=== PATIENT | female | born 1955 | race Asian ===

== ENCOUNTER 2024-05-21 13:54 | Inpatient (IN) | payer MEDICARE, OTHER ==
[~2024-05-21] VITALS: Ht 165.1 cm; Wt 58.1 kg
[~2024-05-21 13:54] MED LIST: AMAN100T PO; AMOX-430 PO; APIX2.5T PO; CRAN450T9 PO; DOCU-141 PO; DONE10TA11 PO; FAMO20TA8 PO; GLAT20KI3 SQ; LEVO25TA9 PO; MULT-213 PO; SIMV10TA98 PO; VALP250C3 PO; VALP250S4 PO
[2024-05-21] MEDS ORDERED: ACET-3117 PO (14:29)
[2024-05-21] MEDS ORDERED: MAGN400O6 PO (14:29)
[2024-05-21] MEDS ORDERED: ACET-2030 PO (14:29)
[2024-05-21] MEDS ORDERED: NA P133E RC (14:29)
[2024-05-21] MEDS ORDERED: BISA10SU61 RC (14:29)
[2024-05-21] MEDS ORDERED: CHOL10005 PO (14:29)
[2024-05-21] MEDS ORDERED: POLY17PO4 PO (14:29)
[2024-05-21 14:40] LABS: BASOPHILS # (AUTO) 0.1 K/UL (0.0-0.2); BASOPHILS % (AUTO) 1.2 % (0.0-2.0); EOSINOPHILS # (AUTO) 0.2 K/uL (0.0-0.7); EOSINOPHILS % (AUTO) 2.8 % (0.0-7.0); HEMOGLOBIN 14.7 g/dL (10.9-14.3); LYMPHOCYTES # (AUTO) 4.1 K/uL (0.8-4.8); LYMPHOCYTES % (AUTO) 52.7 % (20.5-51.5); MEAN CORPUSCULAR HEMOGLOBIN 27.2 uug (24.7-32.8); MEAN CORPUSCULAR HGB CONC 33 g/dL (32.3-35.6); MEAN CORPUSCULAR VOLUME 83.2 fL (75.5-95.3); MONOCYTES # (AUTO) 0.5 K/uL (0.1-1.30); MONOCYTES % (AUTO) 6.9 % (0.0-11.0); NEUTROPHILS # (AUTO) 2.8 K/uL (1.8-8.9); NEUTROPHILS % (AUTO) 36.4 % (38.5-71.5); PLATELET COUNT (AUTO) 237 K/uL (179-408); RED BLOOD CELL COUNT(AUTO) 5.41 MIL/uL (3.63-4.92); RED CELL DISTRIBUTION WIDTH 13.6 % (12.3-17.7); WHITE BLOOD COUNT (AUTO) 7.7 K/uL (3.8-11.8)
[2024-05-21 14:42] LABS: DIFFERENTIAL COMMENT 1
[2024-05-21 14:52] LABS: CALCIUM 9.2 mg/dL (8.5-10.1); CARBON DIOXIDE 29 mmol/L (21-32); CHLORIDE 107 mmol/L (98-107); CREATININE 0.7 mg/dL (0.6-1.3); GLUCOSE 74 mg/dL (74-106); POTASSIUM 3.5 mmol/L (3.5-5.1); SODIUM SERUM 143 mmol/L (136-145); UREA NITROGEN, BLOOD 19 mg/dL (7-18)
[2024-05-21 14:54] LABS: AMMONIA < 10 umol/L (11-32)
[2024-05-21 15:05] LABS: ETHANOL < 3 MG/DL (0-10)
[2024-05-21 15:06] LABS: ACETAMINOPHEN < 2.0 ug/mL (10-30); ALANINE AMINOTRANSFERASE 23 U/L (14-59); ALBUMIN 3.1 g/dL (3.4-5.0); ALKALINE PHOSPHATASE 114 U/L (50-136); ASPARTATE AMINOTRANSFERASE 17 U/L (15-37); BILIRUBIN,DIRECT 0.1 mg/dL (0.0-0.2); BILIRUBIN,TOTAL 0.4 mg/dL (0.2-1.0); TOTAL PROTEIN, SERUM 7.6 g/dL (6.4-8.2)
[2024-05-21 15:16] LABS: *BILIRUBIN,URIN NEGATIVE (NEGATIVE); *BLOOD, URINE 2+ (NEGATIVE); *CLARITY,URINE CLOUDY (CLEAR); *COLOR,URINE YELLOW (YELLOW); *KETONES,URINE NEGATIVE (NEGATIVE); *PROTEIN,URINE 2+ (NEGATIVE); LEUKOCYTE ESTERASE ,URINE 3+ (NEGATIVE); NITRITE, URINE NEGATIVE (NEGATIVE); PH,URINE 8.5 (5.0-8.0); UGLUCOSE NEGATIVE (NEGATIVE)
[2024-05-21 15:28] LABS: BACTERIA,URINE MODERATE /HPF (NONE SEEN); SQUAMOUS EPITHELIAL CELL,UR FEW /HPF (NONE SEEN); URINE AMORPHOUS PHOSPHATES MANY /HPF; WBC,URINE 50-80 /HPF (0-3)
[2024-05-21 15:32] LABS: *AMPHETAMINE, URINE NEGATIVE (NEGATIVE); *BARBITURATE, URINE NEGATIVE (NEGATIVE); *BENZODIAZEPINE, URINE NEGATIVE (NEGATIVE); *CANNABINOID, URINE NEGATIVE (NEGATIVE); *COCCAINE, URINE NEGATIVE (NEGATIVE); *OPIATE, URINE NEGATIVE (NEGATIVE); *PHENCYCLIDINE SCREEN,URINE NEGATIVE (NEGATIVE); FENTANYL, URINE NEGATIVE (NEGATIVE)
[2024-05-21] MEDS ORDERED: ENOXAPARIN SODIUM 40 MG/0.4 ML DISP.SYRIN SQ SCH (15:45)
[2024-05-21] MEDS ORDERED: ONDANSETRON 4 MG/2 ML VIAL IV PRN (15:45)
[2024-05-21] MEDS ORDERED: REMEDY ESSENTIAL ZINC PASTE 113 GM TP PRN (15:45)
[2024-05-21] MEDS ORDERED: MAGNESIUM HYDROXIDE 30 ML LIQUID UDC PO PRN ×2 (15:45→16:00)
[2024-05-21] MEDS ORDERED: ACETAMINOPHEN 325 MG TABLET PO PRN (15:45)
[2024-05-21] MEDS ORDERED: BISACODYL 10 MG SUPP.RECT RC PRN (16:00)
[2024-05-21] MEDS ORDERED: Medication Not On Formulary EA (Acetaminophen 650 MG) PO PRN (16:00)
[2024-05-21] MEDS ORDERED: FLEET ENEMA 133 ML BOTTLE RC PRN (16:00)
[2024-05-21] MEDS ORDERED: MIRALAX 17 GM POWD.PACK PO PRN (16:00)
[2024-05-21 19:20] VITALS: BP 119/62; TEMP 97.6; O2SAT 96
[2024-05-21] MEDS: CEFTRIAXONE 1 G in IV DEXTROSE 5% 50 ML IV SCH (20:13)
[2024-05-21] MEDS: DONEPEZIL 10 MG TABLET PO SCH (21:04)
[2024-05-21] MEDS: SIMVASTATIN 10 MG TABLET PO SCH (21:04)
[2024-05-21] MEDS: APIXABAN 2.5 MG TABLET PO SCH (21:07)
[2024-05-21] MEDS: DOCUSATE SODIUM 100 MG CAPSULE PO SCH (21:10)
[2024-05-22 04:30] VITALS: BP 128/51; TEMP 97.7; O2SAT 97
[2024-05-22] MEDS: PANTOPRAZOLE SODIUM 40 MG TABLET.DR PO SCH (06:09)
[2024-05-22] MEDS: LEVOTHYROXINE SODIUM 25 MCG TABLET PO SCH (06:09)
[2024-05-22 06:20] VITALS: BP 111/68; TEMP 97.9; O2SAT 99
[2024-05-22 06:46] LABS: CALCIUM 9.1 mg/dL (8.5-10.1); CREATININE 0.7 mg/dL (0.6-1.3); MAGNESIUM 2.3 mg/dL (1.8-2.4); PHOSPHOROUS 3.9 mg/dL (2.5-4.9); POTASSIUM 3.8 mmol/L (3.5-5.1)
[2024-05-22 06:58] LABS: THYROID STIMULATING HORMONE 3.26 mIU/mL (0.358-3.740)
[2024-05-22 07:07] LABS: BASOPHILS # (AUTO) 0.1 K/UL (0.0-0.2); BASOPHILS % (AUTO) 0.9 % (0.0-2.0); EOSINOPHILS # (AUTO) 0.3 K/uL (0.0-0.7); EOSINOPHILS % (AUTO) 3.2 % (0.0-7.0); HEMOGLOBIN 14.4 g/dL (10.9-14.3); LYMPHOCYTES # (AUTO) 4.3 K/uL (0.8-4.8); LYMPHOCYTES % (AUTO) 47.2 % (20.5-51.5); MEAN CORPUSCULAR HGB CONC 33 g/dL (32.3-35.6); MEAN CORPUSCULAR VOLUME 82.5 fL (75.5-95.3); MONOCYTES # (AUTO) 0.7 K/uL (0.1-1.30); MONOCYTES % (AUTO) 7.8 % (0.0-11.0); NEUTROPHILS # (AUTO) 3.7 K/uL (1.8-8.9); NEUTROPHILS % (AUTO) 40.9 % (38.5-71.5); PLATELET COUNT (AUTO) 203 K/uL (179-408); RED BLOOD CELL COUNT(AUTO) 5.34 MIL/uL (3.63-4.92); RED CELL DISTRIBUTION WIDTH 13.4 % (12.3-17.7)
[2024-05-22 07:50] VITALS: BP 109/45; TEMP 98.3; O2SAT 81
[2024-05-22] MEDS: CHOLECALCIFEROL 1,000 UNIT TABLET PO SCH (08:42)
[2024-05-22] MEDS: MULTIVITAMINS,THERAPEUTIC TABLET PO SCH (08:42)
[2024-05-22] MEDS ORDERED: Medication Not On Formulary EA (Multivitamins W-Minerals (Multivitamin With Minerals) 1 PO SCH (09:00)
[2024-05-22] MEDS ORDERED: Medication Not On Formulary EA (Cranberry Fruit (Cranberry) 450 MG) PO SCH (09:00)
[2024-05-22] MEDS ORDERED: Medication Not On Formulary EA (Cholecalciferol (Vitamin D3) (Vitamin D3) 1 CAP) PO SCH (09:00)
[2024-05-22] MEDS ORDERED: FAMOTIDINE 20 MG TABLET PO SCH (09:00)
[2024-05-22] MEDS: AMANTADINE HCL 100 MG CAPSULE PO SCH (09:01)
[2024-05-22 11:11] VITALS: BP 132/61; TEMP 97.5; O2SAT 98
[2024-05-22 15:27] VITALS: BP 100/58; TEMP 97.9; O2SAT 99
[2024-05-23 04:29] VITALS: BP 109/66; TEMP 97.8; O2SAT 92
[2024-05-23 06:37] LABS: BASOPHILS # (AUTO) 0.1 K/UL (0.0-0.2); BASOPHILS % (AUTO) 0.8 % (0.0-2.0); EOSINOPHILS # (AUTO) 0.2 K/uL (0.0-0.7); EOSINOPHILS % (AUTO) 2.8 % (0.0-7.0); HEMATOCRIT 43.4 % (31.2-41.9); HEMOGLOBIN 14.3 g/dL (10.9-14.3); LYMPHOCYTES # (AUTO) 3.4 K/uL (0.8-4.8); LYMPHOCYTES % (AUTO) 44.8 % (20.5-51.5); MEAN CORPUSCULAR HGB CONC 33 g/dL (32.3-35.6); MEAN CORPUSCULAR VOLUME 82.2 fL (75.5-95.3); MONOCYTES # (AUTO) 0.6 K/uL (0.1-1.30); MONOCYTES % (AUTO) 7.4 % (0.0-11.0); NEUTROPHILS # (AUTO) 3.4 K/uL (1.8-8.9); NEUTROPHILS % (AUTO) 44.2 % (38.5-71.5); PLATELET COUNT (AUTO) 206 K/uL (179-408); RED BLOOD CELL COUNT(AUTO) 5.28 MIL/uL (3.63-4.92); RED CELL DISTRIBUTION WIDTH 13.3 % (12.3-17.7); WHITE BLOOD COUNT (AUTO) 7.6 K/uL (3.8-11.8)
[2024-05-23 06:51] LABS: DIFFERENTIAL COMMENT 1
[2024-05-23 06:57] LABS: CREATININE 0.7 mg/dL (0.6-1.3); MAGNESIUM 2.3 mg/dL (1.8-2.4); PHOSPHOROUS 3.7 mg/dL (2.5-4.9); POTASSIUM 3.6 mmol/L (3.5-5.1)
[2024-05-23 07:25] VITALS: BP 93/63; TEMP 98.1; O2SAT 96
[2024-05-23 11:58] VITALS: BP 114/48; TEMP 98; O2SAT 94
[2024-05-23 15:28] VITALS: BP 101/71; TEMP 98; O2SAT 96
[2024-05-24 00:35] VITALS: BP 103/68; TEMP 97.6; O2SAT 95
[2024-05-24 07:14] LABS: BASOPHILS # (AUTO) 0.1 K/UL (0.0-0.2); BASOPHILS % (AUTO) 1.1 % (0.0-2.0); EOSINOPHILS # (AUTO) 0.3 K/uL (0.0-0.7); EOSINOPHILS % (AUTO) 4.5 % (0.0-7.0); HEMATOCRIT 41.5 % (31.2-41.9); HEMOGLOBIN 13.7 g/dL (10.9-14.3); LYMPHOCYTES # (AUTO) 3.8 K/uL (0.8-4.8); LYMPHOCYTES % (AUTO) 57.5 % (20.5-51.5); MEAN CORPUSCULAR HEMOGLOBIN 27.3 uug (24.7-32.8); MEAN CORPUSCULAR HGB CONC 33 g/dL (32.3-35.6); MEAN CORPUSCULAR VOLUME 82.9 fL (75.5-95.3); MONOCYTES # (AUTO) 0.5 K/uL (0.1-1.30); MONOCYTES % (AUTO) 7.9 % (0.0-11.0); NEUTROPHILS # (AUTO) 1.9 K/uL (1.8-8.9); PLATELET COUNT (AUTO) 205 K/uL (179-408); RED CELL DISTRIBUTION WIDTH 12.9 % (12.3-17.7); WHITE BLOOD COUNT (AUTO) 6.5 K/uL (3.8-11.8)
[2024-05-24 07:24] LABS: DIFFERENTIAL COMMENT 1
[2024-05-24 07:30] LABS: CALCIUM 8.8 mg/dL (8.5-10.1); CREATININE 0.6 mg/dL (0.6-1.3); MAGNESIUM 2.4 mg/dL (1.8-2.4); POTASSIUM 3.5 mmol/L (3.5-5.1)
[2024-05-24 08:02] LABS: PHOSPHOROUS 3.7 mg/dL (2.5-4.9)
[2024-05-24] MEDS: ENSURE ENLIVE (VAN) 240 ML LIQUID PO SCH (09:27)
[2024-05-24 16:11] VITALS: BP 98/63; TEMP 97.9; O2SAT 93
== END 2024-05-24 16:25 | DRG 689 ==
LOC: ER 13:54 → MEDSURG3 18:15
PROVIDERS: ADMIT Student in an Organized Health Care Education/Training Program; ATTEND Student in an Organized Health Care Education/Training Program
DX: N39.0 Urinary tract infection, site not specified (principal); G92.8 Other toxic encephalopathy; D68.59 Other primary thrombophilia; F02.83 Dementia in other diseases classified elsewhere, unspecified severity, with mood disturbance; F02.818 Dementia in other diseases classified elsewhere, unspecified severity, with other behavioral disturbance; G35 Multiple sclerosis; R62.7 Adult failure to thrive; Z68.21 Body mass index [BMI] 21.0-21.9, adult; F31.9 Bipolar disorder, unspecified; R27.9 Unspecified lack of coordination; Z79.01 Long term (current) use of anticoagulants; Z79.899 Other long term (current) drug therapy; Z74.09 Other reduced mobility; E03.9 Hypothyroidism, unspecified; G20.C Parkinsonism, unspecified; G30.9 Alzheimer's disease, unspecified; K21.9 Gastro-esophageal reflux disease without esophagitis; Z88.6 Allergy status to analgesic agent; Z79.890 Hormone replacement therapy; R13.10 Dysphagia, unspecified; Z87.01 Personal history of pneumonia (recurrent)
CPT/HCPCS: 36415; 70450; 71045; 83605; 83735; 84100; 84443; 84484; 85025; 85730; 87040; 87086; G0378; G0480; J0696